=== PATIENT | male | born 1970 | race Caucasian/White ===

== ENCOUNTER → 2024-09-09 06:15 | Day surgery (SDC) | payer BC, SELFPAY | LOC: GI 06:15 | PROVIDERS: ATTENDING PHYSICIAN Surgery | DX: Z12.11 Encounter for screening for malignant neoplasm of colon (principal); D12.3 Benign neoplasm of transverse colon; D12.5 Benign neoplasm of sigmoid colon | CPT/HCPCS: 45385; 45380; 88305 ==

== ENCOUNTER 2024-12-21 12:16 | Emergency (ER) | payer BC, SELFPAY ==
[2024-12-21 12:24] VITALS: BP 116/86
[2024-12-21 13:25] VITALS: BP 124/84
[2024-12-21 13:32] VITALS: BMI 35.9
[2024-12-21 13:40] LABS: % Basophils 0.7 % (0-2); % Eosinophils 1.5 % (0-6); % Immature Granulocytes 0.4 % (0-0.5); % Lymphocytes 15.6 % (20.5-51.1); % Monocytes 6.7 % (1.7-9.3); % Neutrophils 75.1 % (42.2-75.2); Absolute Basophils 0.1 10^3/uL (0-0.2); Absolute Eosinophils 0.1 10^3/uL (0-0.7); Absolute Lymphocytes 1.4 10^3/uL (1.2-3.4); Absolute Monocytes 0.6 10^3/uL (0.1-0.6); Absolute Neutrophils 6.8 10^3/uL (1.4-6.5); Hematocrit 41.2 % (39.0-52.0); Hemoglobin 14.3 g/dL (13.0-18.0); Mean Corp Hgb Conc. 34.7 g/dL (33.0-37.0); Mean Corpuscular Hgb 28.1 pg (27.0-31.0); Mean Corpuscular Volume 80.9 fL (80.0-94.0); Nucleated Red Blood Cells % 0 % (-); Platelet Count 241 10^3/uL (130-400); Red Blood Cell Count 5.09 10^6/uL (4.70-6.10); Red Cell Dist. Width 13.1 % (11.5-14.5); White Blood Cell Count 9.1 10^3/uL (4.8-10.8)
[2024-12-21 13:48] LABS: INR 1.02; PT 13.7 Sec (11.4-14.6)
[2024-12-21 13:54] LABS: ALT (SGPT) 38 U/L (0-50); AST (SGOT) 26 U/L (17-59); Albumin 3.9 g/dl (3.5-5.0); Alkaline Phosphatase 88 U/L (38-126); Blood Urea Nitrogen 13 mg/dl (9-20); Calcium 8.8 mg/dl (8.4-10.2); Carbon Dioxide 26 mmol/L (22-30); Chloride 102 mmol/L (98-107); Estimated Creatinine Clearance 108 ml/min; Glucose 131 mg/dl (70-99); Potassium 3.9 mmol/L (3.5-5.1); Sodium 137 mmol/L (135-145); Total Bilirubin 0.7 mg/dl (0.2-1.3); Total Protein 6.4 g/dl (6.3-8.2); eGFR > 60.00
[2024-12-21 14:06] LABS: Troponin I < 0.012 ng/ml
--- NOTE | 2024-12-21 14:26 | ED.GENMED ---
History of Present Illness
General
Chief Complaint: Cough
Source: patient, spouse and family
Exam Limitations: none
Time Seen by Provider: 12/21/24 13:09
Nursing documentation reviewed up to this point in time: agreed with
History of Present Illness
History of Present Illness:
54-year-old male presenting to the emergency department today with concerns of an episode where he is coughing felt like something may have gotten to his lung felt very pale, sweaty lasted for few minutes and resolved. Then had a bad headache that
is since resolved otherwise feels well at this point. Denies any ongoing chest pain shortness of breath nausea vomiting numbness weakness.
Review of Systems
Review of Systems
Allergies reviewed?: Yes
All Other Systems: ROS reviewed and negative except as documented in HPI and ROS
Phy Exam
Physical Exam
Physical Exam:
GENERAL: Alert , in no apparent distress
EYE: pupils equal and reactive
NECK: Supple, no significant adenopathy.
ENT: o/p clr, mmm.
CARDIAC: Regular rate and rhythm .
LUNGS: Clear breath sounds bilaterally, no acute respiratory distress, no wheezes/rales/rhonchi
ABDOMEN: Soft, without focal tenderness, no r/g, no cvat
NEUROLOGICAL: Alert and oriented, no focal neuro deficits
SKIN: Warm and dry, skin intact.
MUSCULOSKELETAL: No edema, well perfused.
PSYCH: Normal and appropriate interaction.
Course
Orders/Labs/Results
Orders:
Orders
12/21/24 12:26
Electrocardiogram (*1) Urgent
Reason for Study: Syncope
CT Head W/o Iv Contrast Urgent
Comment:
Reason For Exam: near syncope followed by headache
EKG- Treatment ONCE
12/21/24 12:34
Complete Blood Count/With Diff Urgent
Comprehensive Metabolic Panel Urgent
PT/INR [Prothrombin Time] Urgent
Troponin I Urgent
12/21/24 13:16
Chest [CR Chest - 2 Views ] Urgent
Comment:
Reason For Exam: cough
12/21/24 15:12
EKG [Electrocardiogram (*1)] Urgent
Reason for Study: Chest Pain
EKG- Treatment ONCE
12/21/24 15:39
Troponin I Urgent
Abnormal Lab Results
12/21/24
12:34
Absolute Neuts (auto) 6.8 H 10^3/uL
(1.4-6.5)
Lymphocytes % 15.6 L %
(20.5-51.1)
Glucose 131 H mg/dl
(70-99)
12/21/24 12:34
12/21/24 12:34
Vital Signs
Initial and Last Documented VS:
Initial Vital Signs
Temp Pulse Resp BP Pulse Ox
98.2 F 78 17 116/86 97
12/21/24 12:24 12/21/24 12:24 12/21/24 12:24 12/21/24 12:24 12/21/24 12:24
Last Documented Vital Signs
Temp Pulse Resp BP Pulse Ox
98.2 F 74 22 145/91 97
12/21/24 12:24 12/21/24 16:00 12/21/24 16:00 12/21/24 16:00 12/21/24 16:00
MDM/Problems Addressed
MDM/Problems Addressed:
54-year-old male presenting to the emergency department after a coughing episode he also felt pale diaphoretic and had headache. Symptoms have since resolved. Vital signs normal on arrival here patient in no distress during my assessment labs
unremarkable troponin negative EKG without emergent findings head CT negative. Otherwise patient here with no emergent finding stable for discharge. Return precautions given.
*Critical Care Note
Total Time (30-74mins, 75-104mins- exclusive of procedures): Not Applicable
ED Attending Note
-
Portions of this chart may have been created with voice recognition software.� Occasional wrong word or��sound alike� substitutions may have occurred due to the inherent limitations of voice recognition software.
Discharge Plan
Departure
Patient Disposition: Home (Routine Discharge)
Date of Disposition: 12/21/24
Time of Disposition: 16:07
Patient with high blood pressure during this ER visit?: No
Condition: Good
Covid-19: Not Applicable
Discharge Problem:
Chest pain
Referrals:
Chrissy Rosen PA [Family Provider] -
Interventions
Interventions:
*Risk Screen - Suicide Last Done: 12/21/24 12:28
*General Assessment Last Done: 12/21/24 12:28
*Neglect/Abuse Screening Last Done: 12/21/24 12:28
*ED- Fall Risk Assessment Last Done: 12/21/24 13:33
*ED COVID-19 Vaccine History Last Done: 12/21/24 12:28
*Nursing Disposition Last Done: 12/21/24 16:19
ED- Pulmonary Assessment Last Done: 12/21/24 13:33
Discharge Date and Time
Discharge Date/Time: 12/21/24 16:22
Print Language: SUDANESE
[2024-12-21 15:00] VITALS: BP 127/93
[2024-12-21 16:00] VITALS: BP 145/91
[2024-12-21 16:12] LABS: Troponin I 0.019 ng/ml
== END 2024-12-21 16:22 | disposition home or self-care (01) ==
LOC: EMR 12:16
PROVIDERS: Physician Assistant; EMERGENCY PHYSICIAN Emergency Medicine; FAMILY PHYSICIAN Physician Assistant Medical
DX: R07.9 Chest pain, unspecified (principal); R51.9 Headache, unspecified
CPT/HCPCS: 99285; 70450; 71046; 80053; 84484; 85025; 85610; 93005